=== PATIENT | male | born 1955 | race Caucasian/White ===

== ENCOUNTER → 2024-05-19 | Day surgery (SDC) | payer MEDICARE ==
[~2024-05-19] VITALS: Ht 167.6 cm; Wt 96.2 kg
[~2024-05-19] MED LIST: ACETAMINOPHEN 325MG TABLET PO PRN; ATOR10TA69 PO; ATROPINE SULFATE 1MG/10ML SYR IV PRN; BENA10TA74 PO; DIPHENHYDRAMINE 50MG/ML VIAL ONE; FAMOTIDINE 20MG/2ML VIAL IV ONE; FENTANYL CITRATE/PF 50MCG/ML 2ML VIAL ONE; HEPARIN 1000 UNITS/ML 10ML ONE; HYDR-4001 PO; IODIXANOL 320MG/ML 100 ML BOTTLE IV ONE; IRON100V5 IV; LIDOCAINE HCL 1% 20ML VIAL ONE; MELO-106 PO; METF-414 PO; METH-773 PO; METHYLPREDNISOLONE SOD SUCC 125MG/2ML (ACT-O-VIAL) ONE; MIDAZOLAM HCL 2 MG/2 ML VIAL ONE; MORPHINE SULFATE 2 MG/ML INJ (NOT FOR IM USE) IV PRN; NALOXONE HCL 0.4MG/ML VIAL IV PRN; OMEP40CA20 PO; ONDANSETRON HCL 4MG/2ML INJ IV PRN
[2024-05-19] MEDS: SODIUM CHLORIDE 0.45% 500 ML IV ONE (08:30)
== END | disposition home or self-care (01) ==
LOC: CCL 06:37
PROVIDERS: ATTEND Specialist
DX: I25.10 Atherosclerotic heart disease of native coronary artery without angina pectoris (principal); E11.9 Type 2 diabetes mellitus without complications; E78.5 Hyperlipidemia, unspecified; I11.9 Hypertensive heart disease without heart failure; Z79.84 Long term (current) use of oral hypoglycemic drugs; Z79.899 Other long term (current) drug therapy; Z98.890 Other specified postprocedural states; Z91.041 Radiographic dye allergy status
CPT/HCPCS: 93454; 82962; C1893; C1725; C1769 ×3; J3010; Q9967; J1200; J3490 ×2; J1644 ×2; J2919; J2250; C1887